=== PATIENT | male | born 1950 | race Caucasian/White ===

== ENCOUNTER 2024-11-16 12:19 | Inpatient (IN) | payer MEDICARE, OTHER ==
[~2024-11-16] VITALS: Ht 165.1 cm; Wt 66.4 kg
[2024-11-16] MEDS ORDERED: ONDANSETRON 4 MG/2 ML VIAL ONE (13:49)
[2024-11-16] MEDS: ONDANSETRON 4 MG/2 ML VIAL IV ONE (13:50)
[2024-11-16] MEDS ORDERED: HYDROMORPHONE 1 MG/1 ML DISP.SYRIN ONE (13:50)
[2024-11-16 13:51] LABS: PLATELET COUNT (AUTO) 163 K/uL (152-348); RED BLOOD CELL COUNT(AUTO) 3.63 MIL/uL (4.06-5.63); RED CELL DISTRIBUTION WIDTH 18.5 % (12.1-16.2); WHITE BLOOD COUNT (AUTO) 7.5 K/uL (3.6-10.2)
[2024-11-16] MEDS: HYDROMORPHONE 1 MG/1 ML DISP.SYRIN IV ONE (13:52)
[2024-11-16] MEDS ORDERED: APIX2.5T PO (14:06)
[2024-11-16] MEDS ORDERED: DAPA10TA PO (14:06)
[2024-11-16] MEDS ORDERED: METO50TA16 PO (14:06)
[2024-11-16] MEDS ORDERED: TAMS-3 PO (14:06)
[2024-11-16] MEDS ORDERED: ICOS1CAP PO (14:06)
[2024-11-16] MEDS ORDERED: ASPI81TA31 PO (14:06)
[2024-11-16] MEDS ORDERED: FINA5TAB11 PO (14:17)
[2024-11-16] MEDS ORDERED: HYDR453.4 TP (14:17)
[2024-11-16] MEDS ORDERED: ASCO500C18 PO (14:17)
[2024-11-16] MEDS ORDERED: CYAN500T9 PO (14:17)
[2024-11-16] MEDS ORDERED: FLUT1BLS6 IH (14:17)
[2024-11-16] MEDS ORDERED: FURO20TA4 PO (14:17)
[2024-11-16] MEDS ORDERED: PHEN-894 PO (14:17)
[2024-11-16] MEDS ORDERED: FERR325T30 PO (14:17)
[2024-11-16] MEDS ORDERED: ERGO500040 PO (14:17)
[2024-11-16] MEDS ORDERED: SACU1TAB PO (14:17)
[2024-11-16] MEDS ORDERED: FOLI1TAB94 PO (14:17)
[2024-11-16] MEDS ORDERED: SULF-11 PO (14:17)
[2024-11-16] MEDS ORDERED: BETH25TA2 PO (14:17)
[2024-11-16] MEDS: IV NS 1000 ML 1,000 ML IV ONE (14:52)
[2024-11-16 15:04] LABS: CREATININE 4.7 mg/dL (0.6-1.3); SODIUM SERUM 143 mmol/L (136-145)
[2024-11-16 15:10] LABS: UREA NITROGEN, BLOOD 83 mg/dL (7-18)
[2024-11-16 15:15] LABS: ASPARTATE AMINOTRANSFERASE 12 U/L (15-37); TOTAL PROTEIN, SERUM 7.2 g/dL (6.4-8.2)
[2024-11-16] MEDS ORDERED: SODIUM POLYSTYRENE SULFONATE 15 G/60 ML LIQUID UDC ONE (15:25)
[2024-11-16] MEDS: SODIUM POLYSTYRENE SULFONATE 15 G/60 ML LIQUID UDC PO ONE (15:30)
[2024-11-16 17:39] VITALS: BP 96/55
[2024-11-16 17:52] VITALS: BP 104/45; TEMP 97.8; O2SAT 98
[2024-11-16] MEDS ORDERED: SULF1TAB48 PO (18:12)
[2024-11-16 18:23] LABS: *BILIRUBIN,URIN NEGATIVE (NEGATIVE); *BLOOD, URINE 2+ (NEGATIVE); *CLARITY,URINE CLEAR (CLEAR); *COLOR,URINE YELLOW (YELLOW); *KETONES,URINE NEGATIVE (NEGATIVE); *PROTEIN,URINE 3+ (NEGATIVE); *UROBILINOGEN,URINE 0.2 E.U./dl (NORMAL); LEUKOCYTE ESTERASE ,URINE 3+ (NEGATIVE); NITRITE, URINE POSITIVE (NEGATIVE); UGLUCOSE TRACE (NEGATIVE)
[2024-11-16 18:26] LABS: *SODIUM RNDM,URINE 88 mmol/L (40-220)
[2024-11-16 18:31] LABS: CREATININE 4.8 mg/dL (0.6-1.3); SODIUM SERUM 141 mmol/L (136-145)
[2024-11-16 18:31] LABS: *CREATININE,URINE < 13.0 mg/dL (30-125); *URINE TOTAL PROTEIN RANDOM 123.7 mg/dL (<150/24HR)
[2024-11-16 18:37] LABS: UREA NITROGEN, BLOOD 86 mg/dL (7-18)
[2024-11-16] MEDS ORDERED: PHENAZOPYRIDINE HCL 100 MG TABLET PO PRN (20:45)
[2024-11-16] MEDS ORDERED: ALBUTEROL SULFATE 2.5 MG/ 0.5 ML NEBU NEB PRN (21:00)
[2024-11-16] MEDS ORDERED: ACETAMINOPHEN 325 MG TABLET PO PRN (21:00)
[2024-11-16] MEDS ORDERED: ONDANSETRON 4 MG/2 ML VIAL IV PRN (21:00)
[2024-11-16 21:15] VITALS: BP 124/58; TEMP 97.3; O2SAT 91
[2024-11-16] MEDS: TAMSULOSIN HCL 0.4 MG CAP.SR.24H PO SCH (21:23)
[2024-11-16] MEDS: DOCUSATE SODIUM 100 MG CAPSULE PO SCH (21:23)
[2024-11-17] MEDS: SODIUM ZIRCONIUM CYCLOSILICATE 10 GM POWD.PACK PO ONE (00:48)
[2024-11-17] MEDS: SODIUM BICARBONATE 8.4% 150 MEQ in IV D5W 1000ML 1,000 ML IV PRN (00:50)
[2024-11-17 04:32] VITALS: BP 107/44; TEMP 97.6; O2SAT 98
[2024-11-17] MEDS ORDERED: PHENAZOPYRIDINE HCL 100 MG TABLET PO PRN (06:15)
[2024-11-17] MEDS: PANTOPRAZOLE SODIUM 40 MG TABLET.DR PO SCH (06:35)
[2024-11-17 06:47] LABS: PLATELET COUNT (AUTO) 156 K/uL (152-348); RED BLOOD CELL COUNT(AUTO) 2.81 MIL/uL (4.06-5.63); RED CELL DISTRIBUTION WIDTH 16.7 % (12.1-16.2); WHITE BLOOD COUNT (AUTO) 6.4 K/uL (3.6-10.2)
[2024-11-17 07:36] LABS: ASPARTATE AMINOTRANSFERASE 6 U/L (15-37); CREATININE 4.6 mg/dL (0.6-1.3); SODIUM SERUM 141 mmol/L (136-145); TOTAL PROTEIN, SERUM 5.8 g/dL (6.4-8.2)
[2024-11-17 07:40] LABS: UREA NITROGEN, BLOOD 83 mg/dL (7-18)
[2024-11-17 08:00] VITALS: BP 102/40; TEMP 98.3; O2SAT 99
[2024-11-17 08:04] LABS: CREATINE KINASE, TOTAL 47 U/L (39-308)
[2024-11-17] MEDS ORDERED: Icosapent Ethyl (Vascepa) 2 GM) PO SCH (09:00)
[2024-11-17] MEDS: FOLIC ACID 1 MG TABLET PO SCH (09:49)
[2024-11-17] MEDS: FINASTERIDE 5 MG TABLET PO SCH (09:49)
[2024-11-17] MEDS: BETHANECHOL CHLORIDE 25 MG TABLET PO SCH (09:49)
[2024-11-17] MEDS: CYANOCOBALAMIN 1,000 MCG TABLET PO SCH (09:49)
[2024-11-17] MEDS: ASCORBIC ACID 500 MG TABLET PO SCH (09:49)
[2024-11-17] MEDS: ASPIRIN 81 MG TAB.CHEW PO SCH (09:49)
[2024-11-17] MEDS: APIXABAN 2.5 MG TABLET PO SCH (09:50)
[2024-11-17] MEDS: DAPAGLIFLOZIN PROPANEDIOL 10 MG TABLET PO SCH (09:52)
[2024-11-17 12:13] VITALS: BP 112/40; TEMP 98; O2SAT 94
[2024-11-17] MEDS: MEDIHONEY= THERAHONEY 1.5 OZ TUBE TOP SCH (13:08)
[2024-11-17 16:00] VITALS: BP 107/45; TEMP 98.2; O2SAT 95
[2024-11-17 19:19] VITALS: BP 108/37; TEMP 99.4; O2SAT 95
[2024-11-17] MEDS: HYDROCODONE/APAP 5-325MG TABLET PO PRN (20:41)
[2024-11-17 23:37] VITALS: BP 100/40; TEMP 99; O2SAT 96
[2024-11-18] VITALS (10 sets, daily range): BP systolic 99–118; BP diastolic 35–47; TEMP 97.8–98.7; O2SAT 94–98
[2024-11-18 06:07] LABS: PTH, INTACT 66 pg/mL (15-65)
[2024-11-18 07:24] LABS: CREATININE 3.8 mg/dL (0.6-1.3); SODIUM SERUM 144 mmol/L (136-145); UREA NITROGEN, BLOOD 71 mg/dL (7-18)
[2024-11-18 07:28] LABS: PLATELET COUNT (AUTO) 151 K/uL (152-348); RED CELL DISTRIBUTION WIDTH 16.0 % (12.1-16.2); WHITE BLOOD COUNT (AUTO) 5.0 K/uL (3.6-10.2)
[2024-11-18 07:39] LABS: RED BLOOD CELL COUNT(AUTO) 2.41 MIL/uL (4.06-5.63)
[2024-11-18 12:37] LABS: EOSINOPHILS % (MANUAL) 4 % (0-8); LYMPHOCYTES % (MANUAL) 16 % (20-40); MONOCYTES % (MANUAL) 4 % (2-10); NEUTROPHILS % (MANUAL) 76 % (42-75)
[2024-11-18 12:39] LABS: PLATELET ESTIMATE ADEQUATE
[2024-11-18] MEDS: IV D5/ 0.9% NACL 1,000 ML IV PRN (20:08)
[2024-11-19] VITALS: BP 111/40; TEMP 98.6; O2SAT 94
[2024-11-19 04:00] VITALS: BP 116/40; TEMP 98.6; O2SAT 94
[2024-11-19 07:50] VITALS: BP 122/40; TEMP 99.8; O2SAT 94
[2024-11-19 08:35] LABS: PLATELET COUNT (AUTO) 128 K/uL (152-348); RED BLOOD CELL COUNT(AUTO) 2.84 MIL/uL (4.06-5.63); RED CELL DISTRIBUTION WIDTH 15.9 % (12.1-16.2); WHITE BLOOD COUNT (AUTO) 6.1 K/uL (3.6-10.2)
[2024-11-19 08:43] LABS: CREATININE 2.3 mg/dL (0.6-1.3); SODIUM SERUM 142 mmol/L (136-145); UREA NITROGEN, BLOOD 53 mg/dL (7-18)
[2024-11-19 09:39] LABS: ERYTHROCYTE SEDIMENTATION RATE 17 MM/HR (0-15)
[2024-11-19 10:35] VITALS: BP 119/42; TEMP 98.7; O2SAT 95
[2024-11-19] MEDS: POTASSIUM CHLORIDE 10 MEQ TAB.PRT.SR PO ONE (13:27)
[2024-11-19 15:38] VITALS: BP 149/53; TEMP 98; O2SAT 97
[2024-11-19 19:00] VITALS: BP 129/48; TEMP 98; O2SAT 96
[2024-11-20 06:00] VITALS: BP 123/50; TEMP 98; O2SAT 98
[2024-11-20 07:18] LABS: CREATININE 1.8 mg/dL (0.6-1.3); SODIUM SERUM 141 mmol/L (136-145); UREA NITROGEN, BLOOD 39 mg/dL (7-18)
[2024-11-20 10:45] VITALS: BP 131/51; TEMP 98.7; O2SAT 94
[2024-11-20] MEDS: LACTULOSE 20 G/30 ML LIQUID UDC PO PRN (13:18)
[2024-11-20 15:08] VITALS: BP 141/55; TEMP 98.2; O2SAT 96
[2024-11-20 19:30] VITALS: BP 145/61; TEMP 98.7; O2SAT 96
[2024-11-21 04:00] VITALS: BP 148/61; TEMP 97.7; O2SAT 96
[2024-11-21 05:58] LABS: *OCCULT BLOOD STOOL POSITIVE (NEGATIVE)
[2024-11-21 06:13] LABS: PLATELET COUNT (AUTO) 145 K/uL (152-348); RED BLOOD CELL COUNT(AUTO) 3.12 MIL/uL (4.06-5.63); RED CELL DISTRIBUTION WIDTH 15.3 % (12.1-16.2); WHITE BLOOD COUNT (AUTO) 8.0 K/uL (3.6-10.2)
[2024-11-21 06:27] LABS: ASPARTATE AMINOTRANSFERASE 8 U/L (15-37); CREATININE 1.6 mg/dL (0.6-1.3); SODIUM SERUM 141 mmol/L (136-145); TOTAL PROTEIN, SERUM 5.6 g/dL (6.4-8.2); UREA NITROGEN, BLOOD 28 mg/dL (7-18)
[2024-11-21 10:09] VITALS: BP 136/58; TEMP 98.7; O2SAT 98
[2024-11-21] MEDS: METOPROLOL TARTRATE 50 MG TABLET PO SCH (10:10)
[2024-11-21] MEDS ORDERED: FLUCONAZOLE 200 MG/NS 100ML IV 100 MG in PREMIXED 1 EACH IV SCH (17:00)
[2024-11-21] MEDS: PROTEIN SUPPLEMENT (PROSTAT) 30 ML LIQUID PO SCH (17:05)
[2024-11-21 17:37] VITALS: BP 135/55; TEMP 98.4; O2SAT 98
[2024-11-21] MEDS: FLUCONAZOLE 100 MG TABLET PO SCH (18:12)
[2024-11-21 19:46] VITALS: BP 130/52; TEMP 98.3; O2SAT 94
[2024-11-21] MEDS: ACIDOPHILUS/BULGARICUS CHEW TAB PO SCH (21:09)
[2024-11-22 06:21] VITALS: BP 127/48; TEMP 98; O2SAT 94
[2024-11-22 11:51] VITALS: BP 115/52; TEMP 98.7; O2SAT 95
[2024-11-22 16:20] VITALS: BP 136/52; TEMP 98.8; O2SAT 96
[2024-11-22 19:00] VITALS: BP 130/51; TEMP 97.9; O2SAT 95
[2024-11-23 06:00] VITALS: BP 143/59; TEMP 98.6; O2SAT 96
[2024-11-23 06:43] LABS: PLATELET COUNT (AUTO) 158 K/uL (152-348); RED BLOOD CELL COUNT(AUTO) 2.90 MIL/uL (4.06-5.63); RED CELL DISTRIBUTION WIDTH 15.2 % (12.1-16.2); WHITE BLOOD COUNT (AUTO) 7.1 K/uL (3.6-10.2)
[2024-11-23 06:54] LABS: ASPARTATE AMINOTRANSFERASE 9 U/L (15-37); CREATININE 1.8 mg/dL (0.6-1.3); SODIUM SERUM 141 mmol/L (136-145); TOTAL PROTEIN, SERUM 5.5 g/dL (6.4-8.2); UREA NITROGEN, BLOOD 29 mg/dL (7-18)
[2024-11-23 11:32] VITALS: BP 142/55; TEMP 97.7; O2SAT 96
[2024-11-23] MEDS: MAGNESIUM OXIDE 400 MG TABLET PO ONE (12:28)
[2024-11-23 14:11] LABS: A/G RATIO 1.0 (0.7-1.7); BETA GLOBULIN 0.6 g/dL (0.7-1.3); GLOBULIN, TOTAL 2.6 g/dL (2.2-3.9); M-SPIKE 0.3 g/dL (Not Observed); PROTEIN, TOTAL 5.2 g/dL (6.0-8.5)
[2024-11-23 16:00] VITALS: BP 136/50; TEMP 98.8; O2SAT 96
[2024-11-23 19:41] VITALS: BP 144/55; TEMP 98.5; O2SAT 96
[2024-11-24 05:05] VITALS: BP 138/55; TEMP 99; O2SAT 97
[2024-11-24 08:46] LABS: PLATELET COUNT (AUTO) 175 K/uL (152-348); RED BLOOD CELL COUNT(AUTO) 3.11 MIL/uL (4.06-5.63); RED CELL DISTRIBUTION WIDTH 15.3 % (12.1-16.2); WHITE BLOOD COUNT (AUTO) 9.3 K/uL (3.6-10.2)
[2024-11-24 09:10] LABS: CREATININE 1.7 mg/dL (0.6-1.3); SODIUM SERUM 142 mmol/L (136-145); UREA NITROGEN, BLOOD 34 mg/dL (7-18)
[2024-11-24 09:18] VITALS: BP 130/52; O2SAT 94
[2024-11-24] MEDS ORDERED: BETH25TA2 PO (09:56)
[2024-11-24] MEDS ORDERED: CYAN-51 PO (09:56)
[2024-11-24] MEDS ORDERED: ASPI81TA31 PO (09:56)
[2024-11-24] MEDS ORDERED: ACID1TAB4 PO (09:56)
[2024-11-24] MEDS ORDERED: PROT30LI PO (09:56)
[2024-11-24] MEDS ORDERED: FLUC100T PO (09:56)
[2024-11-24] MEDS ORDERED: FINA5TAB11 PO (09:56)
[2024-11-24] MEDS ORDERED: DOCU-141 PO (09:56)
[2024-11-24] MEDS ORDERED: DAPA10TA PO (09:56)
[2024-11-24] MEDS ORDERED: PANT40TA49 PO (09:56)
[2024-11-24] MEDS ORDERED: LACT10SO7 PO (09:56)
[2024-11-24] MEDS ORDERED: TAMS-3 PO (09:56)
[2024-11-24] MEDS ORDERED: APIX2.5T PO (09:56)
[2024-11-24] MEDS ORDERED: FOLI1TAB94 PO (09:56)
[2024-11-24] MEDS ORDERED: METO50TA16 PO (09:56)
[2024-11-24] MEDS ORDERED: ALBU2.5V13 NEB (09:56)
[2024-11-24] MEDS ORDERED: ASCO500T21 PO (09:56)
[2024-11-24 10:44] VITALS: BP 131/51; TEMP 98.1; O2SAT 95
== END 2024-11-24 14:55 | disposition home health service (06) | DRG 592 ==
LOC: ER 12:19 → MEDSURG3 15:00 → UNDOADMIN 15:00 → TELE3 15:00 → MEDSURG3 11-19 08:15
PROVIDERS: ADMIT Internal Medicine; ATTEND Internal Medicine
PROC: 30233N1 Transfusion of Nonautologous Red Blood Cells into Peripheral Vein, Percutaneous Approach (ICD-10-PCS; principal; 2024-11-18)
DX: L97.518 Non-pressure chronic ulcer of other part of right foot with other specified severity (principal); E43 Unspecified severe protein-calorie malnutrition; N17.0 Acute kidney failure with tubular necrosis; J15.69 Pneumonia due to other Gram-negative bacteria; B37.49 Other urogenital candidiasis; N13.8 Other obstructive and reflux uropathy; E11.52 Type 2 diabetes mellitus with diabetic peripheral angiopathy with gangrene; I13.0 Hypertensive heart and chronic kidney disease with heart failure and stage 1 through stage 4 chronic kidney disease, or unspecified chronic kidney disease; M86.672 Other chronic osteomyelitis, left ankle and foot; M86.671 Other chronic osteomyelitis, right ankle and foot; I50.32 Chronic diastolic (congestive) heart failure; I70.261 Atherosclerosis of native arteries of extremities with gangrene, right leg; J44.0 Chronic obstructive pulmonary disease with (acute) lower respiratory infection; K92.2 Gastrointestinal hemorrhage, unspecified; D68.59 Other primary thrombophilia; J98.11 Atelectasis; I42.9 Cardiomyopathy, unspecified; N13.30 Unspecified hydronephrosis; L97.318 Non-pressure chronic ulcer of right ankle with other specified severity; N40.1 Benign prostatic hyperplasia with lower urinary tract symptoms; E11.42 Type 2 diabetes mellitus with diabetic polyneuropathy; E11.69 Type 2 diabetes mellitus with other specified complication; E11.22 Type 2 diabetes mellitus with diabetic chronic kidney disease; N18.9 Chronic kidney disease, unspecified; D63.8 Anemia in other chronic diseases classified elsewhere; E88.09 Other disorders of plasma-protein metabolism, not elsewhere classified; E87.5 Hyperkalemia; Z74.09 Other reduced mobility; R59.0 Localized enlarged lymph nodes; Z87.891 Personal history of nicotine dependence; I70.0 Atherosclerosis of aorta; R62.7 Adult failure to thrive; Z90.49 Acquired absence of other specified parts of digestive tract; Z89.422 Acquired absence of other left toe(s); I35.8 Other nonrheumatic aortic valve disorders; Z91.199 Patient's noncompliance with other medical treatment and regimen due to unspecified reason; L89.156 Pressure-induced deep tissue damage of sacral region; L89.116 Pressure-induced deep tissue damage of right upper back; L89.126 Pressure-induced deep tissue damage of left upper back; I45.10 Unspecified right bundle-branch block; Z79.01 Long term (current) use of anticoagulants; Z79.82 Long term (current) use of aspirin
CPT/HCPCS: 36415; 70030-TC; 71045; 73721; 76770; 83605; 83735; 83970; 84100; 84153; 84155; 84165; 84300; 84443; 84484; 85025; 85651; 86140; 86850; 86900; 86901; 86920; 87086; 93307; A4606; A4663; A6213; G0378; J0696; J1171; J1450; J2405; J3490; J7040; J7042; J7070; P9016